=== PATIENT | female | born 1990 | race Caucasian/White ===

== ENCOUNTER 2016-08-23 08:30 | Emergency (ER) | payer MEDICAID ==
[~2016-08-23] VITALS: Ht 160 cm; Wt 160.6 kg
[~2016-08-23 08:30] MED LIST: BUTA1CAP28 PO; CEPH-368 PO; ESCI10TA PO; METR500T4 PO; OXYC-229 PO; SULF1TAB24 PO; TRAM50TA2 PO; TRAZ50TA18 PO
[2016-08-23 08:32] VITALS: BP 137/97
[2016-08-23] MEDS ORDERED: DEXAMETHASONE 4 MG TABLET PO ONE (09:00)
[2016-08-23] MEDS ORDERED: DEXAMETHASONE 4 MG TABLET ONE (09:04)
== END 2016-08-23 09:30 ==
LOC: ED 08:55
DX: J02.0 Streptococcal pharyngitis (principal); R09.81 Nasal congestion; I10 Essential (primary) hypertension
CPT/HCPCS: 99283

== ENCOUNTER 2017-02-10 10:03 | Emergency (ER) | payer MEDICAID ==
[~2017-02-10] VITALS: Ht 160 cm; Wt 165.0 kg
[~2017-02-10 10:03] MED LIST changes: -METR500T4 PO; +METR500T8 PO; -OXYC-229 PO; +OXYC-307 PO
[2017-02-10 10:15] VITALS: BP 148/113
== END 2017-02-10 12:02 | disposition home or self-care (01) ==
LOC: ED 12:01
DX: S39.012A Strain of muscle, fascia and tendon of lower back, initial encounter (principal); G89.29 Other chronic pain; M25.551 Pain in right hip; I10 Essential (primary) hypertension; X58.XXXA Exposure to other specified factors, initial encounter; Y93.89 Activity, other specified; Y92.89 Other specified places as the place of occurrence of the external cause; Y99.8 Other external cause status
CPT/HCPCS: 99281

== ENCOUNTER 2017-05-26 11:24 | Emergency (ER) | payer MEDICAID ==
[~2017-05-26] VITALS: Ht 160 cm; Wt 162.7 kg
[2017-05-26 11:36] VITALS: BP 139/91
[2017-05-26] MEDS ORDERED: SODIUM CHLORIDE 0.9% 1,000ML IVBOLUS ONE (12:00)
[2017-05-26] MEDS ORDERED: SODIUM CHLORIDE FLUSH 10ML SYR IVF ONE (12:00)
[2017-05-26 12:13] LABS: BASOPHILS # (AUTO) 0.06 x10^3/uL (0-0.1); BASOPHILS % (AUTO) 1 % (0-1); EOSINOPHILS # (AUTO) 0.21 x10^3/uL (0-0.4); EOSINOPHILS % (AUTO) 2 % (1-7); LYMPHOCYTES # (AUTO) 1.93 x10^3/uL (1-3.4); LYMPHOCYTES % (AUTO) 21 % (22-44); MD NO; MEAN CORPUSCULAR HEMOGLOBIN 30.1 pg (27.0-34.8); MEAN CORPUSCULAR HGB CONC 34.3 g/dL (32.4-35.8); MEAN CORPUSCULAR VOLUME 87.7 fL (80-100); MEAN PLATELET VOLUME 8.2 fL (7.4-10.4); MONOCYTES # (AUTO) 0.39 x10^3/uL (0.2-0.8); MONOCYTES % (AUTO) 4 % (2-9); NEUTROPHILS # (AUTO) 6.77 x10^3/uL (1.8-6.8); NEUTROPHILS % (AUTO) 72 % (42-75); PLATELET COUNT 354 x10^3/uL (130-400); RED BLOOD COUNT 4.88 x10^6/uL (3.82-5.3); RED CELL DISTRIBUTION WIDTH 13.7 % (9.6-15.2)
[2017-05-26 12:21] LABS: ALBUMIN 3.4 g/dL (3.4-5.0); ANION GAP 7 mmol/L (5-15); CALCIUM 8.9 mg/dL (8.5-10.1); CHLORIDE 107 mmol/L (98-107); CREATININE 0.55 mg/dL (0.55-1.02)
[2017-05-26] MEDS ORDERED: IBUPROFEN 200 MG TABLET ONE (13:52)
[2017-05-26] MEDS ORDERED: IBUPROFEN 200 MG TABLET PO ONE (14:00)
[2017-05-26 15:01] LABS: MICROSCOPIC INDICATED
[2017-05-26 15:11] LABS: CULTURE INDICATED? NO
[2017-05-30] MEDS ORDERED: CODE1CAP23 PO (14:08)
== END 2017-05-26 15:55 | disposition home or self-care (01) ==
LOC: ED 13:00
DX: R10.32 Left lower quadrant pain (principal); N94.6 Dysmenorrhea, unspecified; I10 Essential (primary) hypertension; G89.29 Other chronic pain; E66.9 Obesity, unspecified
CPT/HCPCS: 36415; 80048; 81001; 82040; 83690; 84703; 85025; 99284

== ENCOUNTER 2017-07-16 13:19 | Emergency (ER) | payer MEDICAID ==
[~2017-07-16] VITALS: Ht 160 cm; Wt 165.7 kg
[~2017-07-16 13:19] MED LIST changes: +CODE1CAP23 PO
[2017-07-16 14:30] LABS: BASOPHILS # (AUTO) 0.03 x10^3/uL (0-0.1); BASOPHILS % (AUTO) 0 % (0-1); EOSINOPHILS # (AUTO) 0.19 x10^3/uL (0-0.4); EOSINOPHILS % (AUTO) 2 % (1-7); LYMPHOCYTES % (AUTO) 22 % (22-44); MD NO; MEAN CORPUSCULAR HEMOGLOBIN 29.5 pg (27.0-34.8); MEAN CORPUSCULAR VOLUME 86.6 fL (80-100); MEAN PLATELET VOLUME 8.3 fL (7.4-10.4); MONOCYTES # (AUTO) 0.37 x10^3/uL (0.2-0.8); MONOCYTES % (AUTO) 4 % (2-9); NEUTROPHILS # (AUTO) 5.97 x10^3/uL (1.8-6.8); NEUTROPHILS % (AUTO) 72 % (42-75); PLATELET COUNT 341 x10^3/uL (130-400); RED BLOOD COUNT 4.72 x10^6/uL (3.82-5.3); RED CELL DISTRIBUTION WIDTH 13.3 % (9.6-15.2)
[2017-07-16 14:39] LABS: ALANINE AMINOTRANSFERASE 29 U/L (12-78); ALBUMIN 3.2 g/dL (3.4-5.0); ANION GAP 7 mmol/L (5-15); CALCIUM 8.9 mg/dL (8.5-10.1); CHLORIDE 106 mmol/L (98-107); CREATININE 0.61 mg/dL (0.55-1.02)
[2017-07-16 14:44] LABS: ALKALINE PHOSPHATASE 88 U/L (45-117); BILIRUBIN,TOTAL 0.4 mg/dL (0.2-1.0); TOTAL PROTEIN 7.8 g/dL (6.4-8.2)
[2017-07-16 15:24] VITALS: BP 152/88
[2017-07-16] MEDS ORDERED: L.E.T SOLUTION TP ONE (16:01)
== END 2017-07-16 15:27 | disposition home or self-care (01) ==
LOC: ED 15:20
DX: R10.13 Epigastric pain (principal); R19.7 Diarrhea, unspecified
CPT/HCPCS: 36415; 76700; 80053; 83690; 84703; 85025; 99285

== ENCOUNTER 2017-10-02 17:38 | Emergency (ER) | payer MEDICAID ==
[~2017-10-02] VITALS: Ht 160 cm; Wt 165.8 kg
[~2017-10-02 17:38] MED LIST changes: +GABA600T2 PO; +[UNRECOGNIZED DRUG - OTHER] PO
[2017-10-02 18:20] LABS: BASOPHILS # (AUTO) 0.04 x10^3/uL (0-0.1); BASOPHILS % (AUTO) 0 % (0-1); EOSINOPHILS # (AUTO) 0.22 x10^3/uL (0-0.4); EOSINOPHILS % (AUTO) 3 % (1-7); LYMPHOCYTES # (AUTO) 2.01 x10^3/uL (1-3.4); LYMPHOCYTES % (AUTO) 23 % (22-44); MD NO; MEAN CORPUSCULAR HEMOGLOBIN 29.5 pg (27.0-34.8); MEAN CORPUSCULAR HGB CONC 33.6 g/dL (32.4-35.8); MEAN CORPUSCULAR VOLUME 87.9 fL (80-100); MEAN PLATELET VOLUME 8.3 fL (7.4-10.4); MONOCYTES # (AUTO) 0.36 x10^3/uL (0.2-0.8); MONOCYTES % (AUTO) 4 % (2-9); NEUTROPHILS # (AUTO) 6.11 x10^3/uL (1.8-6.8); NEUTROPHILS % (AUTO) 70 % (42-75); PLATELET COUNT 323 x10^3/uL (130-400); RED BLOOD COUNT 4.77 x10^6/uL (3.82-5.3); RED CELL DISTRIBUTION WIDTH 13.6 % (9.6-15.2)
[2017-10-02 18:29] LABS: ALBUMIN 3.2 g/dL (3.4-5.0); ANION GAP 8 mmol/L (5-15); CALCIUM 8.2 mg/dL (8.5-10.1); CHLORIDE 109 mmol/L (98-107); CREATININE 0.66 mg/dL (0.55-1.02)
[2017-10-02 18:32] LABS: TROPONIN I < 0.015 ng/mL (0.000-0.045)
[2017-10-02 21:21] VITALS: BP 152/88
== END 2017-10-02 21:32 | disposition home or self-care (01) ==
LOC: ED 21:15
DX: R06.00 Dyspnea, unspecified (principal); R07.89 Other chest pain; F41.9 Anxiety disorder, unspecified; E66.9 Obesity, unspecified; M19.90 Unspecified osteoarthritis, unspecified site; I10 Essential (primary) hypertension
CPT/HCPCS: 36415; 71045; 80048; 82040; 84484; 85025; 85379; 93005; 99285

== ENCOUNTER 2017-12-14 15:19 | Emergency (ER) | payer MEDICAID ==
[~2017-12-14] VITALS: Ht 160 cm; Wt 156.0 kg
[~2017-12-14 15:19] MED LIST changes: +TRAZ-136 PO; -TRAZ50TA18 PO
[2017-12-14] MEDS ORDERED: KETOROLAC 30 MG/1 ML IVPush ONE (15:30)
[2017-12-14] MEDS ORDERED: SODIUM CHLORIDE FLUSH 10ML SYR IVF ONE (15:30)
[2017-12-14] MEDS ORDERED: KETOROLAC 30 MG/1 ML ONE (15:34)
[2017-12-14 15:54] LABS: BASOPHILS # (AUTO) 0.07 x10^3/uL (0-0.1); BASOPHILS % (AUTO) 1 % (0-1); EOSINOPHILS % (AUTO) 1 % (1-7); LYMPHOCYTES % (AUTO) 15 % (22-44); MD NO; MEAN CORPUSCULAR HEMOGLOBIN 29.1 pg (27.0-34.8); MEAN CORPUSCULAR HGB CONC 33.6 g/dL (32.4-35.8); MEAN CORPUSCULAR VOLUME 86.7 fL (80-100); MEAN PLATELET VOLUME 8.3 fL (7.4-10.4); MONOCYTES # (AUTO) 0.39 x10^3/uL (0.2-0.8); MONOCYTES % (AUTO) 4 % (2-9); NEUTROPHILS # (AUTO) 8.44 x10^3/uL (1.8-6.8); NEUTROPHILS % (AUTO) 80 % (42-75); PLATELET COUNT 386 x10^3/uL (130-400); RED BLOOD COUNT 4.94 x10^6/uL (3.82-5.3); RED CELL DISTRIBUTION WIDTH 13.1 % (9.6-15.2)
[2017-12-14 16:04] LABS: ALBUMIN 3.5 g/dL (3.4-5.0); ANION GAP 7 mmol/L (5-15); CHLORIDE 106 mmol/L (98-107)
[2017-12-14 16:09] LABS: CREATININE 0.71 mg/dL (0.55-1.02); TROPONIN I < 0.015 ng/mL (0.000-0.045)
[2017-12-14] MEDS ORDERED: OMNIPAQUE 350 MG/ML, 150 ML BOTTLE ONE (16:56)
[2017-12-14 17:44] VITALS: BP 167/82
== END 2017-12-14 18:25 | disposition home or self-care (01) ==
LOC: ED 18:05
DX: R07.89 Other chest pain (principal); M94.0 Chondrocostal junction syndrome [Tietze]; G89.29 Other chronic pain; E66.9 Obesity, unspecified
CPT/HCPCS: 36415; 71046; 71275; 80048; 82040; 84484; 85025; 85379; 93005; 96374; 99285; J1885; Q9967

== ENCOUNTER 2017-12-23 10:34 | Emergency (ER) | payer MEDICAID ==
[~2017-12-23] VITALS: Ht 160 cm; Wt 148.0 kg
[2017-12-23] MEDS ORDERED: LIDOCAINE 2%, 20ML SQ ONE (11:00)
[2017-12-23] MEDS ORDERED: ONDANSETRON 2MG/ML, 2ML ONE (11:00)
[2017-12-23] MEDS ORDERED: HYDROmorphone 2 MG/ML, 1ML IVPush PRN (11:00)
[2017-12-23] MEDS ORDERED: SODIUM CHLORIDE FLUSH 10ML SYR IVF ONE (11:00)
[2017-12-23] MEDS ORDERED: METHOCARBAMOL 750 MG TABLET PO ONE (11:00)
[2017-12-23] MEDS ORDERED: HYDROmorphone 2 MG/ML, 1ML ONE (11:00)
[2017-12-23] MEDS ORDERED: ONDANSETRON 2MG/ML, 2ML IVPush ONE (11:00)
[2017-12-23] MEDS ORDERED: METHOCARBAMOL 750 MG TABLET ONE (11:01)
[2017-12-23] MEDS ORDERED: LIDOCAINE-MPF 2%, 2ML ONE ×2 (11:11→11:13)
[2017-12-23] MEDS ORDERED: CEFTRIAXONE 1,000 MG in SODIUM CHLORIDE 0.9% 50 ML IVPB ONE (12:00)
[2017-12-23] MEDS ORDERED: CEFTRIAXONE PMX 1GM/50ML 50 ML ONE (12:02)
[2017-12-23 12:53] VITALS: BP 144/86
== END 2017-12-23 12:55 | disposition home or self-care (01) ==
LOC: ED 11:13
DX: S39.012A Strain of muscle, fascia and tendon of lower back, initial encounter (principal); L02.411 Cutaneous abscess of right axilla; G89.29 Other chronic pain; E66.9 Obesity, unspecified; I10 Essential (primary) hypertension
CPT/HCPCS: 10060; 96365; 96375; 99284; J0696; J1170; J2405

== ENCOUNTER 2017-12-24 12:34 | Emergency (ER) | payer MEDICAID ==
[~2017-12-24] VITALS: Ht 160 cm; Wt 167.0 kg
[2017-12-24 12:43] VITALS: BP 128/55
[2017-12-24] MEDS ORDERED: OXYcodone/APAP 5/325MG TABLET ONE (12:49)
[2017-12-24] MEDS ORDERED: ONDANSETRON ODT 4 MG ONE (12:50)
[2017-12-24] MEDS ORDERED: OXYcodone/APAP 5/325MG TABLET PO ONE (13:00)
[2017-12-24] MEDS ORDERED: LIDOCAINE 2%, 20ML SQ ONE (13:00)
[2017-12-24] MEDS ORDERED: ONDANSETRON ODT 4 MG PO ONE (13:00)
== END 2017-12-24 13:54 | disposition home or self-care (01) ==
LOC: ED 13:46
DX: L02.411 Cutaneous abscess of right axilla (principal); I10 Essential (primary) hypertension; E66.9 Obesity, unspecified; G89.29 Other chronic pain
CPT/HCPCS: 10060; 99283; Q0162

== ENCOUNTER 2017-12-26 12:29 | Emergency (ER) | payer MEDICAID ==
[2017-12-26 12:40] VITALS: BP 152/86
== END 2017-12-26 13:21 | disposition home or self-care (01) ==
LOC: ED 13:12
DX: L02.411 Cutaneous abscess of right axilla (principal); I10 Essential (primary) hypertension; E66.9 Obesity, unspecified
CPT/HCPCS: 99282

== ENCOUNTER 2018-02-18 10:54 | Emergency (ER) | payer MEDICAID ==
[~2018-02-18] VITALS: Ht 160 cm; Wt 163.5 kg
[2018-02-18 11:32] LABS: BASOPHILS # (AUTO) 0.02 x10^3/uL (0-0.1); BASOPHILS % (AUTO) 0 % (0-1); EOSINOPHILS # (AUTO) 0.16 x10^3/uL (0-0.4); EOSINOPHILS % (AUTO) 2 % (1-7); LYMPHOCYTES # (AUTO) 1.78 x10^3/uL (1-3.4); LYMPHOCYTES % (AUTO) 24 % (22-44); MD NO; MEAN CORPUSCULAR HEMOGLOBIN 29.3 pg (27.0-34.8); MEAN CORPUSCULAR VOLUME 86.3 fL (80-100); MEAN PLATELET VOLUME 8.3 fL (7.4-10.4); MONOCYTES # (AUTO) 0.31 x10^3/uL (0.2-0.8); MONOCYTES % (AUTO) 4 % (2-9); NEUTROPHILS % (AUTO) 70 % (42-75); PLATELET COUNT 312 x10^3/uL (130-400); RED BLOOD COUNT 4.53 x10^6/uL (3.82-5.3); RED CELL DISTRIBUTION WIDTH 13.6 % (9.6-15.2)
[2018-02-18 11:37] LABS: ALBUMIN 3.3 g/dL (3.4-5.0); ANION GAP 5 mmol/L (5-15); CALCIUM 9.1 mg/dL (8.5-10.1); CHLORIDE 107 mmol/L (98-107); CREATININE 0.68 mg/dL (0.55-1.02)
[2018-02-18 11:43] LABS: INTERNATIONAL NORMALIZED RATIO 0.97 (0.93-1.1)
[2018-02-18 12:29] VITALS: BP 130/92
== END 2018-02-18 12:32 | disposition home or self-care (01) ==
LOC: ED 11:33
DX: R07.89 Other chest pain (principal); G89.29 Other chronic pain; I10 Essential (primary) hypertension
CPT/HCPCS: 36415; 71046; 80048; 82040; 85025; 85610; 93005; 99285

== ENCOUNTER 2018-05-21 14:34 | Emergency (ER) | payer MEDICAID ==
[~2018-05-21] VITALS: Ht 160 cm; Wt 167.0 kg
[~2018-05-21 14:34] MED LIST changes: +METR-142 PO; -METR500T8 PO; -TRAZ-136 PO; +TRAZ50TA66 PO
[2018-05-21 14:51] VITALS: BP 185/96
[2018-05-21] MEDS ORDERED: ONDANSETRON ODT 4 MG PO ONE ×2 (15:00→16:30)
[2018-05-21 15:16] LABS: BASOPHILS % (AUTO) 1 % (0-1); EOSINOPHILS # (AUTO) 0.22 x10^3/uL (0-0.4); EOSINOPHILS % (AUTO) 2 % (1-7); LYMPHOCYTES # (AUTO) 2.34 x10^3/uL (1-3.4); LYMPHOCYTES % (AUTO) 24 % (22-44); MD NO; MEAN CORPUSCULAR HEMOGLOBIN 29.6 pg (27.0-34.8); MEAN CORPUSCULAR VOLUME 87.2 fL (80-100); MEAN PLATELET VOLUME 8.4 fL (7.4-10.4); MONOCYTES # (AUTO) 0.41 x10^3/uL (0.2-0.8); MONOCYTES % (AUTO) 4 % (2-9); NEUTROPHILS # (AUTO) 6.79 x10^3/uL (1.8-6.8); NEUTROPHILS % (AUTO) 69 % (42-75); PLATELET COUNT 378 x10^3/uL (130-400); RED BLOOD COUNT 4.81 x10^6/uL (3.82-5.3); RED CELL DISTRIBUTION WIDTH 13.6 % (9.6-15.2)
[2018-05-21 15:27] LABS: ALANINE AMINOTRANSFERASE 31 U/L (12-78); ALBUMIN 3.6 g/dL (3.4-5.0); ANION GAP 2 mmol/L (5-15); CALCIUM 9.4 mg/dL (8.5-10.1); CHLORIDE 108 mmol/L (98-107)
[2018-05-21 15:30] LABS: ALKALINE PHOSPHATASE 85 U/L (45-117); BILIRUBIN,TOTAL 0.4 mg/dL (0.2-1.0); TOTAL PROTEIN 8.1 g/dL (6.4-8.2)
[2018-05-21] MEDS ORDERED: ONDANSETRON ODT 4 MG ONE (16:13)
[2018-05-21 16:45] LABS: CULTURE INDICATED? NO; HCG UR SG >= 1.030 (1.003-1.030); MICROSCOPIC NOT IND
== END 2018-05-21 17:10 | disposition home or self-care (01) ==
LOC: ED 17:07
DX: K25.7 Chronic gastric ulcer without hemorrhage or perforation (principal); G89.29 Other chronic pain; I10 Essential (primary) hypertension; B96.81 Helicobacter pylori [H. pylori] as the cause of diseases classified elsewhere
CPT/HCPCS: 36415; 76700; 80053; 81003; 81025; 83690; 85025; 99284; Q0162

== ENCOUNTER 2018-09-13 20:06 | Emergency (ER) | payer MEDICAID ==
[~2018-09-13] VITALS: Ht 160 cm; Wt 154.0 kg
[~2018-09-13 20:06] MED LIST changes: -GABA600T2 PO; +GABA600T7 PO; -METR-142 PO; +METR-90 PO
--- NOTE | 2018-09-13 20:15 | NUR ---
PT BIB [facility] W/ CO EPIGASTRIC PAIN OVER SURGICAL SITE OF GASTRIC SLEEVE AND HERNIA REPAIR ON 06/20/18. +N/V TODAY. PT REPORTS CONSTANT PAIN SINCE PROCEDURE. BP/SPO2 MONITORING IN PLACE. ERP AT BEDSIDE FOR INITIAL ASSESSMENT
[2018-09-13] MEDS ORDERED: MORPHINE SULFATE 4 MG/ML, 1ML ONE (20:29)
[2018-09-13] MEDS ORDERED: ONDANSETRON 2MG/ML, 2ML ONE (20:29)
[2018-09-13] MEDS ORDERED: FAMOTIDINE 20 MG/2 ML ONE (20:30)
[2018-09-13] MEDS ORDERED: MORPHINE SULFATE 4 MG/ML, 1ML IVPush PRN (20:30)
[2018-09-13] MEDS ORDERED: FAMOTIDINE 20 MG/2 ML IVP ONE (20:30)
[2018-09-13] MEDS ORDERED: SODIUM CHLORIDE FLUSH 10ML SYR IVF ONE (20:30)
[2018-09-13] MEDS ORDERED: ONDANSETRON 2MG/ML, 2ML IVPush ONE (20:30)
--- NOTE | 2018-09-13 20:38 | NUR ---
PT MEDICATED PER EMAR FOR 10 EPIGASTRIC PAIN AND NAUSEA. BP/SPO2 MONITORING IN PLACE.
[2018-09-13] MEDS ORDERED: PANT20TA3 PO (20:42)
--- NOTE | 2018-09-13 20:42 | NUR ---
PT TO US. ON 2L BY NC FOR SUPPORT WHILE OFF MONITORING
[2018-09-13 20:43] LABS: BASOPHILS # (AUTO) 0.05 x10^3/uL (0-0.1); BASOPHILS % (AUTO) 1 % (0-1); EOSINOPHILS % (AUTO) 2 % (1-7); LYMPHOCYTES # (AUTO) 2.63 x10^3/uL (1-3.4); LYMPHOCYTES % (AUTO) 26 % (22-44); MD NO; MEAN CORPUSCULAR HEMOGLOBIN 29.2 pg (27.0-34.8); MEAN CORPUSCULAR HGB CONC 33.7 g/dL (32.4-35.8); MEAN CORPUSCULAR VOLUME 86.6 fL (80-100); MEAN PLATELET VOLUME 8.7 fL (7.4-10.4); MONOCYTES # (AUTO) 0.52 x10^3/uL (0.2-0.8); MONOCYTES % (AUTO) 5 % (2-9); NEUTROPHILS # (AUTO) 6.63 x10^3/uL (1.8-6.8); NEUTROPHILS % (AUTO) 66 % (42-75); PLATELET COUNT 373 x10^3/uL (130-400); RED BLOOD COUNT 4.84 x10^6/uL (3.82-5.3); RED CELL DISTRIBUTION WIDTH 13.5 % (9.6-15.2)
[2018-09-13 20:55] LABS: ALANINE AMINOTRANSFERASE 25 U/L (12-78); ALBUMIN 3.6 g/dL (3.4-5.0); ANION GAP 7 mmol/L (5-15); CALCIUM 9.2 mg/dL (8.5-10.1); CHLORIDE 110 mmol/L (98-107); CREATININE 0.69 mg/dL (0.55-1.02)
[2018-09-13 20:58] LABS: ALKALINE PHOSPHATASE 88 U/L (45-117); BILIRUBIN,TOTAL 0.2 mg/dL (0.2-1.0); TOTAL PROTEIN 7.8 g/dL (6.4-8.2)
--- NOTE | 2018-09-13 21:34 | NUR ---
PT REPORTS IMPROVEMENT IN PAIN W/ MEDICATIONS. SPO2 >90% ON RA. POC IS DC. IV DC'D. PT OFF MONITORING. AWAITING DC INSTRUCTIONS
[2018-09-13 21:36] VITALS: BP 148/75
--- NOTE | 2018-09-13 21:41 | NUR ---
DC EDUCATION PROVIDED, PT DEMONSTRATES UNDERSTANDING. PT AMBULATED STEADIY TO DC WITH RN AND FAMILY. PROVIDED TAXI VOUCHER FOR TRANSPORT HOME.
== END 2018-09-13 21:43 | disposition home or self-care (01) ==
LOC: ED 21:37
DX: G89.29 Other chronic pain (principal); R10.13 Epigastric pain; R11.2 Nausea with vomiting, unspecified; I10 Essential (primary) hypertension; E66.9 Obesity, unspecified
CPT/HCPCS: 36415; 76700; 80053; 83690; 85025; 93005; 96374; 96375; 99284; J2405; J3490

== ENCOUNTER 2018-12-05 10:52 | Emergency (ER) | payer MEDICAID ==
[~2018-12-05] VITALS: Ht 160 cm; Wt 148.0 kg
[2018-12-05 11:09] VITALS: BP 135/76
== END 2018-12-05 12:21 | disposition home or self-care (01) ==
LOC: ED 12:04
DX: L02.413 Cutaneous abscess of right upper limb (principal); F17.210 Nicotine dependence, cigarettes, uncomplicated
CPT/HCPCS: 10060; 99283

== ENCOUNTER 2018-12-07 09:24 | Emergency (ER) | payer MEDICAID ==
[~2018-12-07] VITALS: Ht 160 cm; Wt 147.1 kg
[2018-12-07 09:37] VITALS: BP 145/85
== END 2018-12-07 10:53 | disposition home or self-care (01) ==
LOC: ED 10:40
DX: L02.413 Cutaneous abscess of right upper limb (principal)
CPT/HCPCS: 99281

== ENCOUNTER 2018-12-15 22:23 | Emergency (ER) | payer MEDICAID ==
[~2018-12-15] VITALS: Ht 175.3 cm; Wt 148.0 kg
[~2018-12-15 22:23] MED LIST changes: +PANT20TA3 PO; +antibiotics
[2018-12-15] MEDS ORDERED: LIDOCAINE 2%, 20ML SQ ONE (23:00)
[2018-12-15] MEDS ORDERED: LIDOCAINE-MPF 1%, 5ML ONE (23:09)
--- NOTE | 2018-12-15 23:22 | NUR ---
RT UPPER ARM ABSCESS DRAINED ONE WEEK AGO BUT POSSIBLE NEEDS DRAIN PA BRANDON AT BED SIDE FOR ABSCESS DRAIN NOW
--- NOTE | 2018-12-15 23:35 | NUR ---
DEDRICK ESCOBAR DRAINED ABSCESS APPLIED DRESSING INTACT
--- NOTE | 2018-12-16 00:16 | NUR ---
PT SECOND MILLER LIGHT. PT REQUESTING PAIN MEDICATION. INFORMED.
[2018-12-16 00:51] VITALS: BP 139/88
== END 2018-12-16 00:53 | disposition home or self-care (01) ==
LOC: ED 22:50
DX: L02.413 Cutaneous abscess of right upper limb (principal); I10 Essential (primary) hypertension; F32.9 Major depressive disorder, single episode, unspecified
CPT/HCPCS: 10060; 99283

== ENCOUNTER 2018-12-18 11:32 | Emergency (ER) | payer MEDICAID ==
[~2018-12-18] VITALS: Ht 160 cm; Wt 148.0 kg
[2018-12-18 11:59] VITALS: BP 136/84
== END 2018-12-18 13:30 ==
LOC: ED 13:24
DX: Z48.01 Encounter for change or removal of surgical wound dressing (principal); I10 Essential (primary) hypertension; F32.9 Major depressive disorder, single episode, unspecified; F41.1 Generalized anxiety disorder; G89.29 Other chronic pain
CPT/HCPCS: 99283

== ENCOUNTER 2019-04-08 00:09 | Emergency (ER) | payer MEDICAID ==
[~2019-04-08] VITALS: Ht 160 cm; Wt 145.0 kg
[2019-04-08 00:17] VITALS: BP 14/96
[2019-04-08 00:30] LABS: BASOPHILS # (AUTO) 0.09 x10^3/uL (0-0.1); BASOPHILS % (AUTO) 1 % (0-1); EOSINOPHILS # (AUTO) 0.19 x10^3/uL (0-0.4); EOSINOPHILS % (AUTO) 2 % (1-7); LYMPHOCYTES # (AUTO) 3.22 x10^3/uL (1-3.4); LYMPHOCYTES % (AUTO) 24 % (22-44); MD NO; MEAN CORPUSCULAR HEMOGLOBIN 29.9 pg (27.0-34.8); MEAN CORPUSCULAR HGB CONC 33.4 g/dL (32.4-35.8); MEAN CORPUSCULAR VOLUME 89.3 fL (80-100); MEAN PLATELET VOLUME 8.7 fL (7.4-10.4); MONOCYTES # (AUTO) 0.57 x10^3/uL (0.2-0.8); MONOCYTES % (AUTO) 4 % (2-9); NEUTROPHILS # (AUTO) 9.13 x10^3/uL (1.8-6.8); NEUTROPHILS % (AUTO) 69 % (42-75); PLATELET COUNT 348 x10^3/uL (130-400); RED BLOOD COUNT 4.82 x10^6/uL (3.82-5.3); RED CELL DISTRIBUTION WIDTH 13.4 % (9.6-15.2)
[2019-04-08] MEDS ORDERED: MAALOX/HYOSCYAMINE/LIDOCAINE 45 ML BTL PO ONE (00:30)
[2019-04-08] MEDS ORDERED: KETOROLAC 30 MG/1 ML IM ONE (00:30)
[2019-04-08] MEDS ORDERED: MAALOX/HYOSCYAMINE/LIDOCAINE 45 ML BTL ONE (00:35)
[2019-04-08] MEDS ORDERED: KETOROLAC 30 MG/1 ML ONE (00:35)
[2019-04-08 00:39] LABS: ALBUMIN 3.6 g/dL (3.4-5.0); ANION GAP 4 mmol/L (5-15); CALCIUM 9.4 mg/dL (8.5-10.1); CHLORIDE 109 mmol/L (98-107); CREATININE 0.68 mg/dL (0.55-1.02)
[2019-04-08 00:43] LABS: TROPONIN I < 0.015 ng/mL (0.000-0.045)
== END 2019-04-08 01:45 | disposition home or self-care (01) ==
LOC: ED 01:34
DX: R07.89 Other chest pain (principal); I10 Essential (primary) hypertension; E78.5 Hyperlipidemia, unspecified; E78.00 Pure hypercholesterolemia, unspecified
CPT/HCPCS: 36415; 71045; 80048; 82040; 83880; 84484; 85025; 93005; 96372; 99284; J1885

== ENCOUNTER 2019-09-17 22:18 | Emergency (ER) | payer MEDICAID ==
[~2019-09-17] VITALS: Ht 160 cm; Wt 145.0 kg
--- NOTE | 2019-09-17 22:19 | NUR ---
PATIENT ARRIVES WITH [facility] WITH WOUND TO STOMACH THAT IS FROM A HERNIA REPAIR THAT TOOK PLACE 06/12/2019 AND ITS DEHISSED TWICE. SHE ARRIVES WITH A HOT PACK TO AREA AND PAIN TO ABDOMEN
[2019-09-17 22:20] VITALS: BP 132/58
[2019-09-17] MEDS ORDERED: MULT-658 PO (22:31)
--- NOTE | 2019-09-17 22:52 | NUR ---
PATIENT ATTEMPTED TO GO PEE FOR UA, BUT CAN'T GO. IV IN PLACE, AWAITING CT SCAN THEN WILL REATTEMPT
[2019-09-17 22:59] LABS: BASOPHILS # (AUTO) 0.04 x10^3/uL (0-0.1); BASOPHILS % (AUTO) 0 % (0-1); EOSINOPHILS # (AUTO) 0.25 x10^3/uL (0-0.4); EOSINOPHILS % (AUTO) 2 % (1-7); LYMPHOCYTES # (AUTO) 2.67 x10^3/uL (1-3.4); LYMPHOCYTES % (AUTO) 25 % (22-44); MD NO; MEAN CORPUSCULAR HEMOGLOBIN 29.3 pg (27.0-34.8); MEAN CORPUSCULAR HGB CONC 33.6 g/dL (32.4-35.8); MEAN CORPUSCULAR VOLUME 87.3 fL (80-100); MEAN PLATELET VOLUME 8.5 fL (7.4-10.4); MONOCYTES # (AUTO) 0.46 x10^3/uL (0.2-0.8); MONOCYTES % (AUTO) 4 % (2-9); NEUTROPHILS # (AUTO) 7.47 x10^3/uL (1.8-6.8); NEUTROPHILS % (AUTO) 69 % (42-75); PLATELET COUNT 319 x10^3/uL (130-400); RED BLOOD COUNT 4.67 x10^6/uL (3.82-5.3); RED CELL DISTRIBUTION WIDTH 13.1 % (9.6-15.2)
[2019-09-17] MEDS ORDERED: SODIUM CHLORIDE FLUSH 10ML SYR IVF ONE (23:00)
--- NOTE | 2019-09-17 23:04 | NUR ---
CT PENDING BETA RESULT.
[2019-09-17 23:07] LABS: ALANINE AMINOTRANSFERASE 13 U/L (12-78); ALBUMIN 3.3 g/dL (3.4-5.0); ANION GAP 6 mmol/L (5-15); CALCIUM 8.5 mg/dL (8.5-10.1); CHLORIDE 110 mmol/L (98-107); CREATININE 0.64 mg/dL (0.55-1.02)
[2019-09-17 23:11] LABS: ALKALINE PHOSPHATASE 86 U/L (45-117); BILIRUBIN,TOTAL 0.2 mg/dL (0.2-1.0); TOTAL PROTEIN 7.8 g/dL (6.4-8.2)
[2019-09-17] MEDS ORDERED: OMNIPAQUE 350 MG/ML, 150 ML BOTTLE ONE (23:48)
--- NOTE | 2019-09-17 23:54 | NUR ---
trying to get patient to do urine sample
--- NOTE | 2019-09-18 00:02 | NUR ---
urine sent clean catch
[2019-09-18 00:13] LABS: CULTURE INDICATED? NO; MICROSCOPIC NOT IND
== END 2019-09-18 00:30 | disposition home or self-care (01) ==
LOC: ED 22:57
DX: T81.32XA Disruption of internal operation (surgical) wound, not elsewhere classified, initial encounter (principal); Z48.01 Encounter for change or removal of surgical wound dressing; F17.210 Nicotine dependence, cigarettes, uncomplicated; I10 Essential (primary) hypertension; E78.5 Hyperlipidemia, unspecified; E66.9 Obesity, unspecified; Z68.43 Body mass index [BMI] 50.0-59.9, adult
CPT/HCPCS: 36415; 74177; 80053; 81003; 84703; 85025; 99285; Q9967

== ENCOUNTER 2019-10-25 00:45 | Emergency (ER) | payer MEDICAID ==
[~2019-10-25] VITALS: Ht 157.5 cm; Wt 146.5 kg
[~2019-10-25 00:45] MED LIST changes: +MULT-658 PO
[2019-10-25] MEDS ORDERED: ONDANSETRON 2MG/ML, 2ML ONE (01:09)
[2019-10-25] MEDS ORDERED: MORPHINE SULFATE 4 MG/ML, 1ML ONE (01:10)
[2019-10-25 01:11] LABS: BASOPHILS # (AUTO) 0.05 x10^3/uL (0-0.1); BASOPHILS % (AUTO) 1 % (0-1); EOSINOPHILS # (AUTO) 0.31 x10^3/uL (0-0.4); EOSINOPHILS % (AUTO) 3 % (1-7); LYMPHOCYTES # (AUTO) 2.98 x10^3/uL (1-3.4); LYMPHOCYTES % (AUTO) 26 % (22-44); MD NO; MEAN CORPUSCULAR HEMOGLOBIN 29.2 pg (27.0-34.8); MEAN CORPUSCULAR HGB CONC 33.6 g/dL (32.4-35.8); MEAN PLATELET VOLUME 8.4 fL (7.4-10.4); MONOCYTES % (AUTO) 6 % (2-9); NEUTROPHILS # (AUTO) 7.39 x10^3/uL (1.8-6.8); NEUTROPHILS % (AUTO) 65 % (42-75); PLATELET COUNT 383 x10^3/uL (130-400); RED BLOOD COUNT 4.87 x10^6/uL (3.82-5.3); RED CELL DISTRIBUTION WIDTH 12.7 % (9.6-15.2)
[2019-10-25 01:12] LABS: MICROSCOPIC NOT IND
[2019-10-25 01:20] LABS: ALANINE AMINOTRANSFERASE 17 U/L (12-78); ALBUMIN 3.5 g/dL (3.4-5.0); ANION GAP 5 mmol/L (5-15); CALCIUM 8.8 mg/dL (8.5-10.1); CHLORIDE 107 mmol/L (98-107); CREATININE 0.72 mg/dL (0.55-1.02)
--- NOTE | 2019-10-25 01:20 | NUR ---
BREAK RN: LACI SENT TO LAB. PT COMPLAINING OF 10/10 PAIN. PT MEDICATED FOR PAIN AND NAUSEA. PT HAS NO OTHER NEEDS AT THIS TIME. CALL LIGHT IN REACH
[2019-10-25 01:25] LABS: ALKALINE PHOSPHATASE 93 U/L (45-117); BILIRUBIN,TOTAL 0.4 mg/dL (0.2-1.0)
[2019-10-25] MEDS ORDERED: MORPHINE SULFATE 4 MG/ML, 1ML IVPush PRN (01:30)
[2019-10-25] MEDS ORDERED: ONDANSETRON 2MG/ML, 2ML IVPush ONE (01:30)
--- NOTE | 2019-10-25 01:44 | NUR ---
PT TO US.
[2019-10-25] MEDS ORDERED: ACETAMINOPHEN 325 MG TABLET ONE (02:33)
[2019-10-25 02:36] VITALS: BP 140/61
[2019-10-25] MEDS ORDERED: ACETAMINOPHEN 325 MG TABLET PO ONE (03:00)
== END 2019-10-25 03:01 | disposition home or self-care (01) ==
LOC: MERGE 00:45 → ED 01:25
DX: R10.32 Left lower quadrant pain (principal); R10.31 Right lower quadrant pain; R10.2 Pelvic and perineal pain
CPT/HCPCS: 36415; 76830; 80053; 81003; 83690; 84703; 85025; 96374; 96375; 99284; J2270; J2405

== ENCOUNTER 2019-11-30 10:39 | Emergency (ER) | payer MEDICAID ==
[~2019-11-30] VITALS: Ht 160 cm; Wt 146.5 kg
[2019-11-30] MEDS ORDERED: SODIUM CHLORIDE 0.9% 1,000 ML IV ONE (10:47)
--- NOTE | 2019-11-30 10:55 | NUR ---
PT C/O EPIGASTRIC PAIN X 12 HRS. TOOK TYLENON AT HOME. EMS GAVE TYLENOL 1000MG. HX: HERNIA REPAIR MAY AND JULY 2019. REPORTS SLIGHT NAUSEA. DENIES VOMITING. LAST ORAL INTAKE: 944 TODAY. LMP: END OF OCTOBER. LAST BM: TODAY. HAS GI POST-OP APPT PENDING ON MONDAY.
[2019-11-30] MEDS ORDERED: ONDANSETRON 2MG/ML, 2ML IVPush ONE (11:00)
[2019-11-30] MEDS ORDERED: PLEASE ENTER HEIGHT AND WEIGHT MC SCH (11:00)
[2019-11-30] MEDS ORDERED: SODIUM CHLORIDE FLUSH 10ML SYR IVF ONE (11:00)
--- NOTE | 2019-11-30 11:01 | NUR ---
TO XR PER GLADYS
[2019-11-30] MEDS ORDERED: ONDANSETRON 2MG/ML, 2ML ONE (11:08)
--- NOTE | 2019-11-30 11:39 | NUR ---
AMBULATORY TO & FROM [facility] W/OUT INCIDENT; GAIT STEADY. VOIDED SPECIMEN PROVIDED: CLOUDY YELLOW
--- NOTE | 2019-11-30 11:44 | NUR ---
NS HUNG, ZOFRAN GIVEN PER EMAR.
[2019-11-30 11:56] LABS: MICROSCOPIC NOT IND
[2019-11-30 11:57] LABS: BASOPHILS # (AUTO) 0.03 x10^3/uL (0-0.1); BASOPHILS % (AUTO) 0 % (0-1); EOSINOPHILS # (AUTO) 0.16 x10^3/uL (0-0.4); EOSINOPHILS % (AUTO) 2 % (1-7); LYMPHOCYTES # (AUTO) 1.45 x10^3/uL (1-3.4); LYMPHOCYTES % (AUTO) 14 % (22-44); MD NO; MEAN CORPUSCULAR HGB CONC 33.6 g/dL (32.4-35.8); MEAN CORPUSCULAR VOLUME 86.4 fL (80-100); MEAN PLATELET VOLUME 9.4 fL (7.4-10.4); MONOCYTES # (AUTO) 0.48 x10^3/uL (0.2-0.8); MONOCYTES % (AUTO) 5 % (2-9); NEUTROPHILS # (AUTO) 8.46 x10^3/uL (1.8-6.8); NEUTROPHILS % (AUTO) 80 % (42-75); PLATELET COUNT 289 x10^3/uL (130-400); RED BLOOD COUNT 4.81 x10^6/uL (3.82-5.3); RED CELL DISTRIBUTION WIDTH 13.5 % (9.6-15.2)
[2019-11-30 12:05] LABS: ALBUMIN 3.4 g/dL (3.4-5.0); ANION GAP 5 mmol/L (5-15); CALCIUM 9.1 mg/dL (8.5-10.1); CHLORIDE 108 mmol/L (98-107)
[2019-11-30 12:12] LABS: ALANINE AMINOTRANSFERASE 15 U/L (12-78); ALKALINE PHOSPHATASE 87 U/L (45-117); BILIRUBIN,TOTAL 0.7 mg/dL (0.2-1.0); CREATININE 0.59 mg/dL (0.55-1.02); TOTAL PROTEIN 7.6 g/dL (6.4-8.2)
--- NOTE | 2019-11-30 12:14 | NUR ---
CALLED [facility] RE: REPORT. TECH WILL RESEARCH WHY REPORT ISN'T IN CHART YET.
--- NOTE | 2019-11-30 12:29 | NUR ---
PT C/O EPIGASTRIC PAIN. DENIES GERD, ULCER. WILL NOTIFY ERP.
[2019-11-30] MEDS ORDERED: MAALOX/HYOSCYAMINE/LIDOCAINE 45 ML BTL ONE (12:31)
--- NOTE | 2019-11-30 12:32 | NUR ---
SARATH FROM DR SMITH FOR GI COCKTAIL
[2019-11-30] MEDS ORDERED: MAALOX/HYOSCYAMINE/LIDOCAINE 45 ML BTL PO ONE (13:00)
[2019-11-30 13:41] VITALS: BP 124/72
== END 2019-11-30 13:43 | disposition home or self-care (01) ==
LOC: ED 11:50
DX: R10.13 Epigastric pain (principal); R11.0 Nausea; M54.9 Dorsalgia, unspecified; I10 Essential (primary) hypertension; E66.9 Obesity, unspecified; Z68.43 Body mass index [BMI] 50.0-59.9, adult
CPT/HCPCS: 36415; 74022; 76700; 80053; 81003; 83690; 84703; 85025; 96374; 99285; J2405; J7030

== ENCOUNTER 2020-01-13 18:12 | Emergency (ER) | payer MEDICAID ==
[~2020-01-13] VITALS: Ht 160 cm; Wt 145.0 kg
--- NOTE | 2020-01-13 18:28 | NUR ---
moshe. report received from ems. pt c/o diarrhea with bright red blood in stool since this am with nausea. pt also c/o luq abd pain since . pt refused zofran by ems. pt's aox4. resps even and unlabored. hx of hernia repair and gastric sleeve. bp/spo2 monitors in place. call light within reach.
--- NOTE | 2020-01-13 18:51 | NUR ---
report given to tereso guillaume.
--- NOTE | 2020-01-13 18:56 | NUR ---
PT SITTING IN BED, AWAKE AND ALERT, NO SIGNS OF ACUTE DISTRESS, RESPIRATIONS EVEN AND UNLABORED. CALL LIGHT IN REACH, CONNECTED TO BP AND O2 MONITORS, VSS. ERP TO BEDSIDE.
[2020-01-13] MEDS ORDERED: MAALOX/HYOSCYAMINE/LIDOCAINE 45 ML BTL PO ONE (19:30)
[2020-01-13 19:31] LABS: BASOPHILS # (AUTO) 0.03 x10^3/uL (0-0.1); BASOPHILS % (AUTO) 1 % (0-1); EOSINOPHILS # (AUTO) 0.18 x10^3/uL (0-0.4); EOSINOPHILS % (AUTO) 3 % (1-7); LYMPHOCYTES # (AUTO) 1.92 x10^3/uL (1-3.4); LYMPHOCYTES % (AUTO) 29 % (22-44); MD NO; MEAN CORPUSCULAR HEMOGLOBIN 29.2 pg (27.0-34.8); MEAN CORPUSCULAR VOLUME 88.4 fL (80-100); MEAN PLATELET VOLUME 8.5 fL (7.4-10.4); MONOCYTES # (AUTO) 0.37 x10^3/uL (0.2-0.8); MONOCYTES % (AUTO) 6 % (2-9); NEUTROPHILS # (AUTO) 4.03 x10^3/uL (1.8-6.8); NEUTROPHILS % (AUTO) 62 % (42-75); PLATELET COUNT 345 x10^3/uL (130-400); RED BLOOD COUNT 4.67 x10^6/uL (3.82-5.3); RED CELL DISTRIBUTION WIDTH 13.8 % (9.6-15.2)
[2020-01-13] MEDS ORDERED: MAALOX/HYOSCYAMINE/LIDOCAINE 45 ML BTL ONE (19:34)
[2020-01-13 19:35] VITALS: BP 117/47
[2020-01-13 19:42] LABS: ALANINE AMINOTRANSFERASE 21 U/L (12-78); ALBUMIN 3.4 g/dL (3.4-5.0); ANION GAP 6 mmol/L (5-15); CALCIUM 9.2 mg/dL (8.5-10.1); CHLORIDE 111 mmol/L (98-107); CREATININE 0.56 mg/dL (0.55-1.02)
[2020-01-13 19:47] LABS: ALKALINE PHOSPHATASE 64 U/L (45-117); BILIRUBIN,TOTAL 0.3 mg/dL (0.2-1.0); TOTAL PROTEIN 7.6 g/dL (6.4-8.2)
== END 2020-01-13 20:54 | disposition home or self-care (01) ==
LOC: ED 20:30
DX: K64.8 Other hemorrhoids (principal)
CPT/HCPCS: 36415; 80053; 83690; 84703; 85025; 99283

== ENCOUNTER 2020-01-21 22:45 | Emergency (ER) | payer MEDICAID ==
[~2020-01-21] VITALS: Ht 160 cm; Wt 144.4 kg
[~2020-01-21 22:45] MED LIST changes: -PANT20TA3 PO; +PANT20TA4 PO
[2020-01-21] MEDS ORDERED: HYDROcodone/APAP 5/325 TABLET ONE (23:56)
[2020-01-22] MEDS ORDERED: HYDROcodone/APAP 5/325 TABLET PO ONE
--- NOTE | 2020-01-22 00:01 | NUR ---
PT CAME IN CO LLQ PAIN. STATES SHE HAS HX OF OVARIAN CYSTS. PT REPORTS HER LMP WAS JAN 13. PT RESTING IN [facility]. UA SENT. MEDICATED PER JUL. WARM BLANKETS PROVIDED.
[2020-01-22 00:16] LABS: BASOPHILS # (AUTO) 0.02 x10^3/uL (0-0.1); BASOPHILS % (AUTO) 0 % (0-1); EOSINOPHILS # (AUTO) 0.17 x10^3/uL (0-0.4); EOSINOPHILS % (AUTO) 1 % (1-7); LYMPHOCYTES # (AUTO) 2.43 x10^3/uL (1-3.4); LYMPHOCYTES % (AUTO) 19 % (22-44); MD NO; MEAN CORPUSCULAR HEMOGLOBIN 29.1 pg (27.0-34.8); MEAN CORPUSCULAR HGB CONC 32.9 g/dL (32.4-35.8); MEAN CORPUSCULAR VOLUME 88.5 fL (80-100); MEAN PLATELET VOLUME 8.2 fL (7.4-10.4); MONOCYTES # (AUTO) 0.59 x10^3/uL (0.2-0.8); MONOCYTES % (AUTO) 5 % (2-9); NEUTROPHILS # (AUTO) 9.46 x10^3/uL (1.8-6.8); NEUTROPHILS % (AUTO) 75 % (42-75); PLATELET COUNT 355 x10^3/uL (130-400); RED BLOOD COUNT 5.06 x10^6/uL (3.82-5.3); RED CELL DISTRIBUTION WIDTH 13.7 % (9.6-15.2)
[2020-01-22 00:18] LABS: MICROSCOPIC NOT IND
[2020-01-22 00:28] LABS: ALBUMIN 3.6 g/dL (3.4-5.0); ANION GAP 6 mmol/L (5-15); CALCIUM 8.9 mg/dL (8.5-10.1); CHLORIDE 108 mmol/L (98-107); CREATININE 0.71 mg/dL (0.55-1.02)
[2020-01-22 01:51] VITALS: BP 126/81
--- NOTE | 2020-01-22 01:51 | NUR ---
PT RESTING IN [facility]. VSS. NAD.
--- NOTE | 2020-01-22 01:53 | NUR ---
Pt report from ciara guillaume. This rn to assume care of pt. Awaiting us results.
== END 2020-01-22 02:52 | disposition home or self-care (01) ==
LOC: ED 01-22 01:10
DX: R10.32 Left lower quadrant pain (principal); R10.2 Pelvic and perineal pain; I10 Essential (primary) hypertension; M19.90 Unspecified osteoarthritis, unspecified site; G89.29 Other chronic pain; E78.5 Hyperlipidemia, unspecified
CPT/HCPCS: 36415; 76830; 80048; 81003; 82040; 84703; 85025; 99284

== ENCOUNTER 2020-07-10 04:21 | Emergency (ER) | payer MEDICAID ==
[~2020-07-10] VITALS: Ht 160 cm; Wt 127.9 kg
[~2020-07-10 04:21] MED LIST changes: -ESCI10TA PO; +ESCI10TA97 PO; -OXYC-307 PO; +OXYC-380 PO
--- NOTE | 2020-07-10 04:25 | NUR ---
PT BIB EMS FOR BILATERAL LOWER ABDOMINAL PAIN. HX OF CYSTS. PT REPORTS MILD NAUSEA, DENIES VOMITTING OR DIARRHEA. PT STATES THE EPISODE BEGAN ABOUT 0330. LAST KNOWN MENSTRUAL CYCLE WAS THIS WEEK. PT PLACED ON SPO2,BP,ECG MONITORING AT THIS TIME. PROVIDED WARM BLANKETS FOR COMFORT. WCTM. PRIMARY RN VANESSA PROVIDED BS REPORT. 100MCG FENTANYL, 4MG ZOFRAN ENROUTE.
--- NOTE | 2020-07-10 04:40 | NUR ---
ERP AT BEDSIDE FOR EVAL
[2020-07-10 05:11] LABS: BASOPHILS % (AUTO) 1 % (0-1); EOSINOPHILS % (AUTO) 2 % (1-7); LYMPHOCYTES % (AUTO) 24 % (22-44); MEAN CORPUSCULAR HEMOGLOBIN 30.5 pg (27.0-34.8); MEAN CORPUSCULAR HGB CONC 34.4 g/dL (32.4-35.8); MEAN PLATELET VOLUME 9.3 fL (7.4-10.4); MONOCYTES % (AUTO) 6 % (2-9); NEUTROPHILS % (AUTO) 67 % (42-75); PLATELET COUNT 241 x10^3/uL (130-400); RED CELL DISTRIBUTION WIDTH 13.7 % (9.6-15.2)
[2020-07-10 05:13] LABS: MD NO
--- NOTE | 2020-07-10 05:13 | NUR ---
ultrasound at bedside, urine sent
[2020-07-10 05:17] LABS: ALANINE AMINOTRANSFERASE 17 U/L (12-78); ALBUMIN 3.2 g/dL (3.4-5.0); ANION GAP 6 mmol/L (5-15); CALCIUM 8.7 mg/dL (8.5-10.1); CHLORIDE 110 mmol/L (98-107)
[2020-07-10 05:22] LABS: ALKALINE PHOSPHATASE 53 U/L (45-117); BILIRUBIN,TOTAL 0.6 mg/dL (0.2-1.0); CREATININE 0.57 mg/dL (0.55-1.02); TOTAL PROTEIN 6.8 g/dL (6.4-8.2)
[2020-07-10 05:24] LABS: MICROSCOPIC INDICATED
[2020-07-10] MEDS ORDERED: KETOROLAC 30 MG/1 ML ONE (05:50)
[2020-07-10 05:58] VITALS: BP 121/78
[2020-07-10] MEDS ORDERED: KETOROLAC 30 MG/1 ML IVPush ONE (06:00)
--- NOTE | 2020-07-10 06:11 | NUR ---
STRAIGHT CATH PERFORMED PER ERP ORDER AND POLICY. PT TOLERATED WELL. URINE SAMPLE WALKED TO LAB. PT DENIES ANY ADDITIONAL NEEDS AT THIS TIME. CALL LIGHT IN REACH.
[2020-07-10 06:22] LABS: MICROSCOPIC INDICATED
--- NOTE | 2020-07-10 06:48 | NUR ---
Report from Sharri DENNIS.
--- NOTE | 2020-07-10 07:14 | NUR ---
LABORATORY DIRECTOR: JUANIS FROM [facility] CALLED REGARDING PT TRANSPORTATION/PICK FOR DISCHARGE, VERIFIED PT INFORMATION. SPOKE WITH PT AND PRIMARY RN'S INGRID.
== END 2020-07-10 07:20 | disposition home or self-care (01) ==
LOC: ED 05:26
DX: R10.2 Pelvic and perineal pain (principal); R10.9 Unspecified abdominal pain; I10 Essential (primary) hypertension; R11.0 Nausea; E78.5 Hyperlipidemia, unspecified
CPT/HCPCS: 36415; 76830; 80053; 81001; 84703; 85025; 87077; 87086; 87186; 96374; 99284; J1885

== ENCOUNTER 2020-07-26 19:26 | Emergency (ER) | payer MEDICAID ==
[~2020-07-26] VITALS: Ht 162.6 cm; Wt 125.9 kg
[2020-07-26] MEDS ORDERED: KETOROLAC 30 MG/1 ML IM ONE (20:00)
[2020-07-26] MEDS ORDERED: DIAZEPAM 5 MG TABLET PO ONE (20:00)
[2020-07-26] MEDS ORDERED: DIAZEPAM 5 MG TABLET ONE (20:10)
[2020-07-26] MEDS ORDERED: KETOROLAC 60 MG/2 ML ONE (20:10)
--- NOTE | 2020-07-26 20:21 | NUR ---
PT MEDICATED PER JUL. PT TO X RAY AT THIS TIME
[2020-07-26 21:30] VITALS: BP 135/74
== END 2020-07-26 21:32 | disposition home or self-care (01) ==
LOC: ED 21:18
DX: S16.1XXA Strain of muscle, fascia and tendon at neck level, initial encounter (principal); S60.041A Contusion of right ring finger without damage to nail, initial encounter; M51.34 Other intervertebral disc degeneration, thoracic region; R51.9 Headache, unspecified; Z88.1 Allergy status to other antibiotic agents; V59.60XA Unspecified occupant of pick-up truck or van injured in collision with unspecified motor vehicles in traffic accident, initial encounter; Y93.89 Activity, other specified; Y92.89 Other specified places as the place of occurrence of the external cause; Y99.8 Other external cause status
CPT/HCPCS: 70450; 72072; 72125; 73130; 96372; 99285; J1885

== ENCOUNTER 2020-09-06 07:34 | Emergency (ER) | payer MEDICAID ==
[~2020-09-06] VITALS: Ht 160 cm; Wt 130.7 kg
[~2020-09-06 07:34] MED LIST changes: +SULF-23 PO; -SULF1TAB24 PO
--- NOTE | 2020-09-06 07:40 | NUR ---
pt [facility] from work where she was c/o s/o pain with tingling to RUE. pt denies injury. 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 ambulatory without assista and BANERJEE. has very mild weakness to RUE compared to L, but has full ROM and CMS of R hand intact no family at bedside
[2020-09-06] MEDS ORDERED: METHOCARBAMOL 750 MG TABLET PO ONE (08:00)
[2020-09-06] MEDS ORDERED: METHOCARBAMOL 750 MG TABLET ONE (08:37)
[2020-09-06 08:44] VITALS: BP 151/81
== END 2020-09-06 09:03 | disposition home or self-care (01) ==
LOC: ED 08:46
DX: M54.12 Radiculopathy, cervical region (principal); I10 Essential (primary) hypertension; E78.5 Hyperlipidemia, unspecified
CPT/HCPCS: 93005; 99283

== ENCOUNTER 2020-11-05 11:25 | Emergency (ER) | payer MEDICAID ==
[~2020-11-05] VITALS: Ht 161.3 cm; Wt 126.5 kg
--- NOTE | 2020-11-05 11:36 | NUR ---
C-COLLAR PLACED IN TRIAGE.
--- NOTE | 2020-11-05 13:10 | NUR ---
network operations project manager: Pt ambulatory to room from lobby at this time via w/c
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
--- NOTE | 2020-11-05 13:19 | NUR ---
PT RESTING ON GURNEY. NADN. DE LUNA.
[2020-11-05] MEDS ORDERED: METHOCARBAMOL 750 MG TABLET ONE (13:44)
[2020-11-05] MEDS ORDERED: KETOROLAC 30 MG/1 ML ONE (13:44)
--- NOTE | 2020-11-05 13:49 | NUR ---
PT RESTING ON GURNEY. NADN. DE LUNA.
[2020-11-05] MEDS ORDERED: METHOCARBAMOL 750 MG TABLET PO ONE (14:00)
[2020-11-05] MEDS ORDERED: KETOROLAC 30 MG/1 ML IM ONE (14:00)
[2020-11-05 14:44] VITALS: BP 133/76
--- NOTE | 2020-11-05 14:44 | NUR ---
PT RESTING ON GURNEY. NADN. DE LUNA.
== END 2020-11-05 14:55 | disposition home or self-care (01) ==
LOC: ED 14:42
DX: S16.1XXA Strain of muscle, fascia and tendon at neck level, initial encounter (principal); I10 Essential (primary) hypertension; E78.5 Hyperlipidemia, unspecified; X50.9XXA Other and unspecified overexertion or strenuous movements or postures, initial encounter; Y93.89 Activity, other specified; Y92.89 Other specified places as the place of occurrence of the external cause; Y99.8 Other external cause status
CPT/HCPCS: 72125; 96372; 99284; J1885